=== PATIENT | female | born 1960 | race Caucasian/White ===

== ENCOUNTER → 2021-07-08 10:02 | Outpatient (CLI) | payer BC, SELFPAY ==
--- NOTE | ~2021-07-08 | MR_ITS ---
EXAMINATION: MR lower leg RT wo con DATE: 07/08/2021 11:07 INDICATION: Right lower leg pain and difficulty walking. TECHNIQUE: Magnetic resonance imaging (MRI) of the right lower leg was performed without intravenous contrast. Sequences included axial, sagittal and coronal T1-weighted FSE, axial T2-weighted FS FSE an d sagittal and coronal fluid sensitive FSE STIR. The contralateral left lower leg is included on the coronal images. COMPARISON: None. FINDINGS: Bone alignment is normal. There is marrow edema surrounding a low signal intensity fracture line exte nding circumferentially but not across the central aspect of the medullary space at the proximal meta diaphyseal region of the right tibia. There is associated surrounding periostitis marrow signal is ot herwise normal with no other fractures or pathologic marrow replacing process. Physiologic amount of fluid in the right knee and ankle joints. Nonspecific subtle increased fluid signal throughout the me dial head of the right gastrocnemius muscle. IMPRESSION: 1. Incomplete fracture involving the cortex at the metadiaphyseal region of the proximal right tibia which could be related to prior trauma although appearance and location suggests a stress/insufficien cy fracture. Clearly with clinical history. 2. Nonspecific subtle increased fluid signal intensity throughout the medial head of the left gastroc nemius muscle. Differential would include reactive edema related to the adjacent fracture, low-grade muscle strain or contusion, acute denervation change or other nonspecific myositis which has a wide d ifferential including infectious, inflammatory and other rheumatologic etiologies. Reviewed, dictated and finalized at location A. IMPRESSION: 1. Incomplete fracture involving the cortex at the metadiaphyseal region of the proximal right tibia which could be related to prior trauma although appearanc e and location suggests a stress/insufficiency fracture. Clearly with clinical history. 2. Nonspecific subtle increased fluid signal intensity throughout the medial he ad of the left gastrocnemius muscle. Differential would include reactive edema related to the adjacent fracture, low-grade muscle strain or contusion, acute d enervation change or other nonspecific myositis which has a wide differential i ncluding infectious, inflammatory and other rheumatologic etiologies.
== END ==
PROVIDERS: PCP Family Medicine; Visit Provider Nurse Practitioner
DX: S82.201A Unspecified fracture of shaft of right tibia, initial encounter for closed fracture (principal)
CPT/HCPCS: 73718

== ENCOUNTER → 2022-02-21 15:47 | Outpatient (CLI) | payer BC, SELFPAY ==
--- NOTE | ~2022-02-21 | XR_ITS ---
EXAMINATION: XR shoulder LT min 2V DATE: 02/21/2022 16:23 INDICATION: Left shoulder pain. TECHNIQUE: 4 views of left shoulder were obtained. COMPARISON: None. FINDINGS: Bone alignment is normal. No fracture. There is an old healed fracture of proximal left hum erus. There is moderate osteoarthritis of glenohumeral joint. Acromioclavicular joint is normal. IMPRESSION: 1. Moderate osteoarthritis of glenohumeral joint. Reviewed, dictated and finalized at location B.
--- NOTE | ~2022-02-21 | XR_ITS ---
EXAMINATION: XR shoulder RT min 2V DATE: 02/21/2022 16:23 INDICATION: Right shoulder pain. TECHNIQUE: 4 views of right shoulder were obtained. COMPARISON: None. FINDINGS: Bone alignment is normal. No fracture. There is moderate osteoarthritis of glenohumeral jhonny nt and mild osteoarthritis of acromioclavicular joint. IMPRESSION: 1. Polyarticular osteoarthritis. Reviewed, dictated and finalized at location B.
== END ==
PROVIDERS: PCP Nurse Practitioner; Visit Provider Nurse Practitioner
DX: M19.012 Primary osteoarthritis, left shoulder (principal); M19.011 Primary osteoarthritis, right shoulder
CPT/HCPCS: 73030